=== PATIENT | male | born 1965 | race Two or more races ===

== ENCOUNTER 2017-09-22 15:57 | Emergency (ER) | payer OTHER, MEDICAID ==
[~2017-09-22 15:57] MED LIST: LEVO-28 PO
[2017-09-22 19:08] VITALS: BP 162/98
== END 2017-09-22 20:34 | disposition home or self-care (01) ==
LOC: ER 15:57
DX: M25.511 Pain in right shoulder (principal); M62.838 Other muscle spasm; I10 Essential (primary) hypertension; Z86.73 Personal history of transient ischemic attack (TIA), and cerebral infarction without residual deficits; Z98.61 Coronary angioplasty status
CPT/HCPCS: 73030

== ENCOUNTER 2018-09-14 11:06 | Emergency (ER) | payer OTHER, MEDICAID ==
[2018-09-14 11:06] VITALS: BP 0/0
== END 2018-09-14 17:58 | disposition expired ==
LOC: ER 11:06 → EDUNIT# 11:06 → EDBD 11:06 → ER 17:58
DX: I46.9 Cardiac arrest, cause unspecified (principal); Z79.2 Long term (current) use of antibiotics
CPT/HCPCS: 31500; 92950